=== PATIENT | female | born 1975 | race Caucasian/White ===

== ENCOUNTER 2018-01-27 04:47 | Emergency (ER) | payer SELFPAY ==
[~2018-01-27] VITALS: Ht 167.6 cm; Wt 75.0 kg
[2018-01-27 04:55] VITALS: TEMP 97.3
[2018-01-27] MEDS ORDERED: MULTIPLE VITAMI1 CAP PO (04:59)
[2018-01-27 05:33] LABS: MAGNESIUM 1.9 mg/dL (1.6-2.3)
[2018-01-27 05:46] LABS: TROPONIN-I < 0.012 ng/mL (0.000-0.034)
[2018-01-27 06:39] VITALS: BP 111/79; PULSE 79
== END 2018-01-27 06:40 | disposition home or self-care (01) ==
LOC: COL.ER 04:47
PROVIDERS: Emergency Medicine
DX: R00.2 Palpitations (principal); R06.02 Shortness of breath

== ENCOUNTER → 2018-09-27 | Outpatient (CLI) | payer OTHER ==
[~2018-09-27] MED LIST: MULTIPLE VITAMI1 CAP PO
== END ==
LOC: MC.RAD 13:24
DX: Z12.31 Encounter for screening mammogram for malignant neoplasm of breast (principal); N64.89 Other specified disorders of breast

== ENCOUNTER → 2018-09-30 | Outpatient (CLI) | payer OTHER | LOC: MC.RAD 10:59 | DX: Z12.31 Encounter for screening mammogram for malignant neoplasm of breast (principal) | CPT/HCPCS: G0279 ==

== ENCOUNTER → 2019-08-19 | Outpatient (CLI) | payer OTHER | LOC: ZLAB.ENT 16:06 | DX: R22.1 Localized swelling, mass and lump, neck (principal) ==